=== PATIENT | male | born 1960 | race Caucasian/White ===

== ENCOUNTER 2021-02-04 11:47 | Emergency (ER) | payer BC ==
[~2021-02-04] VITALS: Ht 180.3 cm; Wt 70.0 kg
--- NOTE | 2021-02-04 11:55 | NUR ---
PT BIBA FROM [employer] FOR [facility]/O SYNCOPAL EPISODE. WHILE SITTING DOWN TO EAT, PT FELT DIZZY & FELT, SYNC EPIS LASTED 10 SECONDS PER . WHEN EMS ARRIVED, PT WANTED TO AMA BUT WHEN HE STOOD UP HE HAD ANOTHER SYNC EPISODE. PER EMS 15 MINUTES APART. [employer] PT RECEIVED 500 ML NS. PT IS ON VACATION AND STATES HE IS NOT USE TO THE HEAT AND ELEVATION. PT CHANGED INTO GOWN, ALL MONITORS IN PLACE. CALL LIGHT WITHIN REACH. AT BS
[2021-02-04] MEDS ORDERED: SODIUM CHLORIDE 0.9% 1,000ML IVBOLUS ONE (12:00)
[2021-02-04] MEDS ORDERED: SODIUM CHLORIDE FLUSH 10ML SYR IVF ONE (12:00)
[2021-02-04 12:28] LABS: BASOPHILS % (AUTO) 1 % (0-1); EOSINOPHILS % (AUTO) 5 % (1-7); LYMPHOCYTES % (AUTO) 16 % (22-44); MEAN CORPUSCULAR HEMOGLOBIN 29.3 pg (27.5-34.5); MEAN CORPUSCULAR HGB CONC 33.2 g/dL (33.2-36.2); MEAN PLATELET VOLUME 7.6 fL (7.4-10.4); MONOCYTES % (AUTO) 6 % (2-9); NEUTROPHILS % (AUTO) 73 % (42-75); PLATELET COUNT 308 x10^3/uL (130-400); RED BLOOD COUNT 4.58 x10^6/uL (4.38-5.82); RED CELL DISTRIBUTION WIDTH 13.1 % (9.4-14.8)
[2021-02-04 12:38] LABS: ALBUMIN 3.2 g/dL (3.4-5.0); ANION GAP 4 mmol/L (5-15); CALCIUM 8.2 mg/dL (8.5-10.1); CHLORIDE 110 mmol/L (98-107); CREATININE 0.84 mg/dL (0.7-1.3)
[2021-02-04 12:41] LABS: TROPONIN I < 0.015 ng/mL (0.000-0.045)
[2021-02-04 12:48] VITALS: BP 123/80
== END 2021-02-04 13:24 | disposition home or self-care (01) ==
LOC: ED 13:12
DX: R55 Syncope and collapse (principal); R94.31 Abnormal electrocardiogram [ECG] [EKG]
CPT/HCPCS: 36415; 80048; 82040; 84484; 85025; 93005; 96360; 96361; 99284; J7030